=== PATIENT | male | born 1985 | race Caucasian/White ===

== ENCOUNTER 2023-03-28 16:35 | Emergency (ER) | payer MEDICARE, SELFPAY ==
[2023-03-28 16:41] VITALS: BP 130/98; PULSE 110; RESP 18; TEMP 36.7; O2SAT 99; BMI 24.4
--- NOTE | 2023-03-28 17:24 | ED_ITS ---
HPI - General Adult General Date Seen: 03/28/23 Chief complaint: Skin/Abscess/Foreign Body Stated complaint: R foot infection Time Seen by Provider: 03/28/23 17:03 Source: patient Mode of arrival: ambulatory Limitations: no limitations History of Present Illness HPI narrative: Patient is a 38-year-old male with diabetes and a chronic infection in his right foot. He apparently has been followed by a child development director, colleague of Dr. Hooks. , was seen a week or so ago and surgery was recommended but he refused. He comes in today saying that he would like to see Dr. Hooks and is hoping to get antibiotics in the interim. He denies fevers or systemic complaints, does acknowledge that the foot does not look very good. He says it looked better while he was on antibiotics but he has since run out. He says he was told last week that he had air bubbles on the x-rays and that he would be in a couple days if he did not do anything, he notes in a somewhat antagonistic manner that he is still alive. Related Data Previous Rx's Medication Instructions Recorded amoxicillin 875 mg-potassium 1 tab PO BID #10 tabs 03/28/23 clavulanate 125 mg tablet levofloxacin 500 mg tablet 500 mg PO DAILY 5 days #5 tabs 03/28/23 Allergies Allergy/AdvReac Type Severity Reaction Status Date / Time metformin AdvReac Intermediate GI upset Verified 03/28/23 16:52 Review of Systems Status of ROS: Reports: 10 or more systems reviewed and unremarkable except as noted in History and below Exam Narrative: Exam Narrative: Vital signs as noted above. In general, an alert, nontoxic male. Head: Normocephalic, atraumatic. Eyes: Pupils are equal reactive. Extraocular movements are full. Conjunctivae are normal. ENT: Mucous membranes are moist. Neck: Supple without lymphadenopathy. Heart: Regular rate and rhythm. No murmur or rub. Lungs: Clear bilaterally. No increased work of breathing, crackles or wheezes. Abdomen: Soft and nontender. No organomegaly. Extremities: On the right foot, there is gangrene noted of the 5th toe, the toe itself is open with purulence and protrusion of the distal and of the proximal phalanx through the skin which is mostly gone on the dorsal surface of the toe. There is some erythema extending over the dorsum of the foot and sloughing of the skin. The foot is malodorous. Neurologic: Patient is alert and oriented to person and place. Speech is fluent. Face is symmetric. Moves all extremities equally. Affect: Normal. Skin: Warm and dry. Wet gangrene as outlined above. Const: Vital Signs, click to edit/add: Vital Signs - 24 hr 03/28/23 16:41 Temperature 98.1 F Pulse Rate [Pulse Oximeter] 110 H Respiratory Rate 18 Blood Pressure [Ri ght Upper Arm] 130/98 H Pulse Oximetry 99 Oxygen Delivery Me thod Room Air Course Course Hospital Course: I spoke with Dr. Hooks, who says that he had recommended that this patient have surgery a week ago and the patient refused. He will come evaluate patient. In the meantime, I have ordered labs, IV antibiotics, and an x-ray. Plan will be admission to the hospital for surgery. Dr. Hooks evaluated the patient, strongly recommended surgery, stressed the emergency nature of this. Patient says he absolutely will not have surgery today, he says he needs to go home to ?compute all of this. He says he wants to go home and see his daughter. Dr. Hooks is scheduled to be out of town later this weekend, and therefore is not able to do the surgery after today as patient will need to be hospitalized for multiple days postoperatively. Therefore, he recommended that the patient go to [place] or [place] tomorrow if he refuses to stay today. I am having the patient sign out AMA. I am putting him on Levaquin and Augmentin. I have tried to stress the importance of follow-up tomorrow, I have tried to explain that every moment that he waits that he is losing more tissue and increasing the complexity of the surgery and the likelihood of complications. I have offered to help with anxiety, patient refuses any medication for that, he says he does not have anxiety. A wound culture was done but I am not doing any other testing as it will not change our management today. Vital Signs Vital signs: Initial Vital Signs Temperature 98.1 F 03/28/23 16:41 Temperature Source Temporal Artery Scan 03/28/23 16:41 Pulse Rate 110 H 03/28/23 16:41 Respiratory Rate 18 03/28/23 16:41 Blood Pressure 130/98 H 07/12/23 16:41 Blood Pressure Mean 108 H 03/28/23 16:41 Blood Pressure Position Sitting 03/28/23 16:41 Pulse Oximetry 99 03/28/23 16:41 Oxygen Delivery Method Room Air 03/28/23 16:41 Vital Signs Temperature 98.1 F 03/28/23 16:41 Pulse Rate 110 H 03/28/23 16:41 Respiratory Rate 18 03/28/23 16:41 Blood Pressure 130/98 H 03/28/23 16:41 Pulse Oximetry 99 03/28/23 16:41 Oxygen Delivery Method Room Air 03/28/23 16:41 Temperature 98.1 F 03/28/23 16:41 Pulse Rate 110 H 03/28/23 16:41 Respiratory Rate 18 03/28/23 16:41 Blood Pressure 130/98 H 03/28/23 16:41 Pulse Oximetry 99 03/28/23 16:41 Oxygen Delivery Method Room Air 03/28/23 16:41 Discharge Plan Discharge 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 As you have refused this, we are prescribing antibiotics. Dr. Hooks has recommended that you go to [place] or [facility] for surgery tomorrow. Prescriptions: New levofloxacin 500 mg tablet 500 mg PO DAILY 5 Days Qty: 5 0RF amoxicillin-pot clavulanate 875-125 mg tablet 1 tab PO BID Qty: 10 0RF Stand Alone Forms: My[employer] Info Instructions
--- NOTE | 2023-03-28 18:05 | ED.NURSE ---
Pt signed AMA form after considerable discussion with Dr. Hooks, Dr. Ogden. Pt leaves ambulatory, boot in place.
--- NOTE | 2023-03-28 19:40 | PM.PODCN1 ---
[facility] - Podiatry Data of Consult Date Seen: 03/28/23 Consult date: 03/28/23 Requesting physician: Dr. Enma Ogden Primary care provider: Not a Local Provider Consult Narrative Reason for consult: Right foot infection Narrative: Ebenezer Koehler is a 38 year old male well known to me presents to the ED for evaluation of a right foot infection. Patient has had ongoing issues with the right foot for 1 month. He was initially seen by 1 of my partners and x-rays showed a gas gangrene. He was advised to go to the emergency department and be admitted to the hospital immediately. He declined at that time. He contacted my office shortly thereafter and he was advised that I agreed with Dr. Alba and to go to the emergency department immediately for admission to the hospital. He again declined. He states that he has seen some improvement in the redness in the leg and swelling since being on oral antibiotics and does not believe that the infection is as bad as it is. He has presented to the emergency department in [place] seeking my advice. cc:: CC: [facility] Social History Smoking Status: Smoker, status unknown Exam Narrative: Exam Narrative: General: No distress currently. Presents with his mother. Vascular: Palpable pedal pulse right foot. Neuro: Insensate to light touch. Musculoskeletal: Normal muscle strength. Derm: Edema and erythema to the lateral foot. There is large open wound over the 5th toe the dorsal aspect. There is a necrotic proximal phalanx head protruding from the wound. There is substantial amount of necrotic tissue surrounding the 5th toe and extending along the dorsal lateral foot. There is follow odor from the foot and purulence draining from the open area. There is slight fluctuance to the lateral fifth metatarsal head area. 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 I discussed with him that the best option moving forward is to remove the infected tissue was soon as possible to prevent further destruction of healthy tissue leading to more proximal amputation. At this point he in my opinion he will require a partial 5th ray resection that will need to be left open in heal by secondary intention. If he waits he runs the risk a more proximal and extensive amputation surgery. We also discussed that this infection could get into his blood stream causing him to become septic and he could lose his life. He tells me this is with the other doctor said it did happen suite does not believe that will occur. He states he absolutely is leaving tonight and will not stay for surgery. His mother is wondering if I can do surgery tomorrow night. I do not recommend this and I do not know my availability. It is best if he stays tonight if he wants me to be his surgeon. If he is going to wait I recommend he present to the emergency department at [facility] or [facility] where my partners are able to perform the surgery. Again this is against medical advice and recommend he stay tonight. He states he will not. At this point I had to excuse myself from a conversation for a surgery. He continued his care with Dr. Ogden and discharged AMA. Nail Debridement Qualifies If: Qualifiers If:: A patient qualifies for nail debridement if they have: 1 class A finding (Q7) 2 class B findings (Q8) OR 1 class B & 2 class C findings in addition to a primary condition (Q9)
== END 2023-03-28 18:10 | disposition home or self-care (01) ==
PROVIDERS: Emergency Provider Emergency Medicine
DX: I96 Gangrene, not elsewhere classified
CPT/HCPCS: 80048; 83605; 85025; 86140; 87040; 87070; 87186; 99284